=== PATIENT | male | born 1965 | race Caucasian/White ===

== ENCOUNTER → 2021-01-17 08:35 | Outpatient (CLI) | payer OTHER, SELFPAY ==
--- NOTE | ~2021-01-17 | XR_ITS ---
EXAMINATION: XR wrist RT min 3V DATE: 01/17/2021 08:57 INDICATION: Injury to the right hand TECHNIQUE: Posteroanterior, ulnar deviation, oblique, and lateral views of the right wrist were obtai tenisha. COMPARISON: 01/30/2019 FINDINGS: Old healed right scaphoid waist fracture with pin fixation and residual humpback deformity. Nondispla ludwin chronic nonunited ulnar styloid avulsion fracture. Alignment remains essentially anatomic. No acu te fractures identified. Slight progression in still moderate polyarticular osteoarthritis at the dis citlalli radioulnar, wrist, midcarpal, triscaphe and first carpal metacarpal joints. IMPRESSION: 1. Pin fixation of an old healed scaphoid waist fracture with residual humpback deformity. 2. Nondisplaced chronic nonunited ulnar styloid avulsion fracture. 3. Moderate polyarticular osteoarthritis at the right wrist and carpus. Reviewed, dictated and finalized at location A.
== END ==
PROVIDERS: Visit Provider Nurse Practitioner Family
DX: S52.611K Displaced fracture of right ulna styloid process, subsequent encounter for closed fracture with nonunion (principal)
CPT/HCPCS: 73110

== ENCOUNTER → 2022-04-30 11:42 | Outpatient (CLI) | payer BC, SELFPAY ==
--- NOTE | ~2022-04-30 | XR_ITS ---
XR shoulder LT min 2V DATE: 04/30/2022 12:00 INDICATION: Fall one month ago. Pain at top of shoulder, radiating down arm TECHNIQUE: 4 views COMPARISON: None FINDINGS: There is prominent degenerative change and inferior spurring at the acromioclavicular joint . There is mild osteoarthritis at the left glenohumeral joint. No fracture or dislocation, periosteal reaction or bone destruction. Patchy sclerotic densities of the proximal left humeral shaft may be due to benign chondroid tumor or infarct. IMPRESSION: Prominent degenerative change at left acromioclavicular joint Reviewed, dictated and finalized at location A.
--- NOTE | ~2022-04-30 | XR_ITS ---
XR clavicle LT DATE: 04/30/2022 12:00 INDICATION: Fall one month ago. Pain at top of shoulder radiating down arm TECHNIQUE: AP and angled AP views COMPARISON: 04/30/2022 left shoulder FINDINGS: There is prominent joint space narrowing and spurring at the acromioclavicular joint consis tent with prominent degenerative change. No fracture or dislocation, periosteal reaction or bone destruction of the left clavicle. IMPRESSION: Prominent degenerative change at the left acromioclavicular joint Reviewed, dictated and finalized at location A.
== END ==
PROVIDERS: PCP Family Medicine; Visit Provider Nurse Practitioner Family
DX: M89.8X1 Other specified disorders of bone, shoulder (principal); M19.012 Primary osteoarthritis, left shoulder
CPT/HCPCS: 73000; 73030

== ENCOUNTER → 2022-09-25 10:36 | Outpatient (CLI) | payer OTHER, SELFPAY ==
--- NOTE | ~2022-09-25 | XR_ITS ---
EXAMINATION:XR cervical spine min 6V DATE: 09/25/2022 10:58 INDICATION: Neck pain TECHNIQUE: AP, lateral in neutral, flexion, and extension, lateral swimmers and odontoid views of the cervical spine are provided. COMPARISON: 03/15/2018 FINDINGS: Again noted is kyphosis of the upper cervical spine. Alignment is normal. No hypermobility is present with flexion or extension. The odontoid process is intact. No fracture is identified. Vert ebral body heights and disk spaces are normal. Prevertebral soft tissues are normal. There is multile shanice mild to moderate facet joint osteoarthritis. IMPRESSION: 1. Mild cervical spondylosis without acute findings or significant interval change. Reviewed, dictated and finalized at location B. RATORY TESTER IMPRESSION: 1. Mild cervical spondylosis without acute findings or significant interval home nge.
== END ==
PROVIDERS: PCP Family Medicine; Visit Provider Nurse Practitioner Family
DX: M47.22 Other spondylosis with radiculopathy, cervical region (principal); G89.29 Other chronic pain
CPT/HCPCS: 72052

== ENCOUNTER → 2022-11-25 11:47 | Outpatient (CLI) | payer OTHER, SELFPAY ==
--- NOTE | ~2022-11-25 | XR_ITS ---
EXAM: XR shoulder RT min 2V DATE: 11/25/2022 11:59 HISTORY: M25.511 - Pain in right shoulder when lifting arm over head . COMPARISON: X-ray chest 07/01/2017, 06/27/2013. FINDINGS: Normal mineralization. No fracture or dislocation. No lytic or blastic lesion. Moderate AC joint hypertrophy. Mild glenohumeral joint narrowing and subchondral sclerosis. Distal right clavicu lar deformity, likely due to old healed fracture. Old osseous Bankart lesion. No erosion or periostea l change. Soft tissues within normal limits. IMPRESSION: No acute osseous finding in the right shoulder. Polyarticular osteoarthritis. Remote post traumatic findings detailed above. Reviewed, dictated and finalized at location K. IMPRESSION: No acute osseous finding in the right shoulder. Polyarticular osteo arthritis. Remote posttraumatic findings detailed above.
== END ==
PROVIDERS: PCP Orthopaedic Surgery; Visit Provider Orthopaedic Surgery
DX: M25.511 Pain in right shoulder (principal)
CPT/HCPCS: 73030

== ENCOUNTER 2023-01-25 00:23 | Day surgery (SDC) | payer OTHER, SELFPAY ==
[2023-01-20 09:53] VITALS: BMI 26.4
--- NOTE | 2023-01-20 09:55 | PC.NURSE ---
Report to the Outpatient Waiting Room, entrance under the green pavilion located off [facility], at 1000 on 01-25-23. Planned Procedure Time: 1200. Time changes happen often and if your time is changed the preop area will call you the afternoon before. - You and your visitor will be asked to self-screen and do not enter if you have any COVID symptoms. - A mask is optional within the hospital at this time. Patients may have clear liquids (water, carbonated beverages, clear teas, apple juice) until 3 hours prior to surgery with a maximum of 20 ounces. 0900 - No food from midnight until time of surgery - Infants may have breast milk until 4 hours before surgery, formula 6 hours prior to surgery. - Children will be allowed to drink immediately following surgery. If applicable, please bring a bottle or sippy cup to assist with drinking. Juice, water, soda, and popsicles are readily available. For infants on formula, please bring formula the day of surgery. Pacifiers are allowed. Take the following medications with a SIP of water the morning of surgery: None DO NOT STOP ANY OF YOUR OTHER PRESCRIPTION MEDICATIONS PRIOR TO SURGERY ?EXCEPT THE FOLLOWING Medications to discontinue per physician: Aleve Date to take last dose: 01-19-23 Please no make-up, nail indonesian, hairspray, perfume, deodorant, or body powder the day of surgery. No jewelry (including any body piercings) or valuables the day of surgery, leave them at home. Please take a shower or bath the night before, or the morning of, surgery with an antibacterial soap. Wear comfortable, loose fitting clothing. Children are encouraged to wear pajamas. - Jewelry must be removed prior to entering the operating room. Rings and piercings that are not removed may be cut off. - The hospital will not accept responsibility for valuables. - Please leave all valuables, including medications, at home the day of surgery. If you are going home after surgery, a licensed chain saw driver must drive you home. - NO public transportation without another adult if you receive anesthesia. - We recommend that an adult stay with you for 24 hours following discharge. - We also recommend that you do not drive, make important decision, drink alcoholic beverages, or take any drugs that were not prescribed by your health care provider for at least 24 hours after your discharge time. For Pediatric surgeries, we recommend two adults accompany the child home. Follow any additional instructions given to you from your surgeon. If you or anyone in your household have experienced Covid symptoms in the past week, please notify your surgeon or the nurse liaison at the phone number below for possible testing. Telephone instructions given to Ed Hsieh and asked if any additional questions and then verbalized understanding. Patient advised to call surgeon office or pre surgery nurse liaison [phone] if any additional questions.
[2023-01-25] VITALS (8 sets, daily range): BP systolic 100–113; BP diastolic 62–74; PULSE 57–65; RESP 12–20; TEMP 36.4; O2SAT 93–100; BMI 25.6
[2023-01-25] MEDS: KETOROLAC 15 MG/ML VIAL (*BKC) IV PUSH (10:38)
[2023-01-25] MEDS: ACETAMINOPHEN 500 MG TABLET 1000 MG PO (10:38)
[2023-01-25] MEDS: LACTATED RINGERS 1,000 ML 30 ML IV CONT ×2 (10:43→15:29)
--- NOTE | 2023-01-25 11:52 | WPDANESEPPF ---
Anes - Initial Pre Proc Eval Procedure: Operation Date: 01/25/23 12:00 Proposed Procedures p Right Shoulder Arthroscopy, Rotator Cuff Repair with Subacromial Decompression - Ferny Hylton MD Date/Time: 01/25/23 11:52 Surgeon: Ferny Hylton MD Pre Op Diagnosis: right complete rotator cuff tear Patient Data Age: 57 Gender: M Height: 1.85 m Weight: 88.2 kg Last Vital Signs Temp 36.4 C 01/25/23 10:01 Pulse 62 01/25/23 10:01 Resp 16 01/25/23 10:01 BP 104/62 01/25/23 10:01 Pulse Ox 100 01/25/23 10:01 O2 Del Method Room Air 01/25/23 10:01 Allergies Allergy/AdvReac Type Severity Reaction Status Date / Time No Known Allergies Allergy Unknown Verified 01/25/23 10:24 Home Medications Medication Instructions Recorded Confirmed Type cyclobenzaprine 10 mg tablet 10 mg PO TID PRN muscle spasm #30 12/15/22 01/25/23 Rx tabs tadalafil 5 mg tablet (Cialis) 5 mg PO DAILY #30 tabs 12/31/22 01/25/23 Rx diphenhydramine 25 1 tablet PO HS PRN pain 01/20/23 01/25/23 History mg-acetaminophen 500 mg tablet (Tylenol PM Extra Strength) montelukast 10 mg tablet 10 mg PO PRN PRN Allergy Symptoms 01/20/23 01/25/23 History (Singulair) naproxen sodium 220 mg tablet 440 mg PO Q8H PRN Pain 01/20/23 01/25/23 History (Aleve) Patient hx anesthesia problems: none Family hx anesthesia problems: none Results Review: All pre-operative results and documents have been reviewed as part of the pre-operative evaluation. PENDING SALE TO [facility] Past Medical History Medical History BMI 25.0-25.9,adult BMI 26.0-26.9,adult BMI 27.0-27.9,adult Surgical History Surgical History H/O colonoscopy History of hernia repair History of knee surgery (~03/18/15) Manipulation of Lt TKA History of total left knee replacement (~10/09/14) Family History Family History Father Family history of diabetes mellitus in first degree relative Family history of malignant neoplasm of urinary bladder Sibling No problems noted. Mother Social History Social History Smoking packs per day: 1 Smoking cigarettes per day: 20.0 Years smoked: 15 Smoking pack-years: 15.00 Smoking status: Former smoker Tobacco type: cigarettes Second hand tobacco smoke exposure: No Smoking end date: 08/23/93 Additional smoking assessment comments: Quit smoking at age 28 Alcohol intake: current Drinks per week: 1 Alcohol use details: occassionally Substance use: never Substance use type: does not use Lack of Transportation: No Lack of Food: Never True Current Housing: I Have Housing Concerned About Future Housing: No Difficulty Paying Gas/Electric Bills: No Difficulty Paying for Meds: No Currently Unemployed: No Education: High School Diploma/GED Difficulty w/ Childcare or Family Care: No Living arrangements: with family Occupation/Education: occupation 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 Informed Consent: The patient's anesthetic plan and its attendant risks and benefits were discussed with the patient/family/POA. Questions were solicited and answers p
--- NOTE | 2023-01-25 12:02 | WPDHPUPDATE1 ---
History and Physical Update Update Date/Time: 01/25/23 12:02 History and Physical has been reviewed, including an updated exam of the patient. There are NO changes in the patient's condition. Risks, benefits, and alternatives have been discussed and questions answered. Patient agrees to proceed with procedure.
--- NOTE | 2023-01-25 12:24 | WPDANESPNB ---
Anes - Peripheral Nerve Block Date/Time: 01/25/23 12:24 I have discussed with the patient/family/POA the placement of a peripheral nerve block for post-operative pain management, including associated risks, benefits, complications, and side effects. Alternative methods of post-operative analgesia were detailed. Questions were solicited and answers provided to the satisfaction of the patient/family/POA. Time-Out: A pre-procedural Time-Out was completed immediately before starting the procedure and confirmed: Patient Identification, Site, Procedure, Patient Position and the Availability of Requisite Equipment. Clinical Indications: Acute post-operative pain management requested by the operative surgeon. Nerve Block Insertion Note Anes-nerve block: interscalene right Patient position: supine Skin prep: chlorhexidine Needle: 22 gauge, stimulating, insulated echogenic needle. Needle length: 50 mm Technique: ultrasound Injectate: bupivacaine 0.5% with epi 5 mcg/ml (30cc no epi) and dexamethasone (mg) (8) Observations: tolerated well Complications: none Procedure start time:: 1220 Procedure end time:: 122
[2023-01-25] MEDS: ceFAZolin 2 GM/D5W 50 ML 2 GM/50 ML BAG IVPB (12:40)
[2023-01-25] MEDS: EPINEPHrine HCL INJ 1 MG/ML AMPUL IRRIGATION ×2 (13:30)
--- NOTE | 2023-01-25 15:36 | SUR.PHASEI ---
MD Hylton office contacted for discharge order and pt. instructions.
--- NOTE | 2023-01-25 15:42 | W.PM.PROC2 ---
Procedure Note - Detailed Date of Procedure 01/25/23 Pre-op Diagnosis right complete rotator cuff tear Post-op Diagnosis Same Procedure Performed Right shoulder 1. Arthroscopic rotator cuff repair 2. Arthroscopic subacromial decompression Surgeon Ferny Hylton MD Anesthesia General and Regional ( interscalene block) Findings Large crescent tear. Very mild retraction. Repair with 3 bone tunnels and 9 total sutures. Description of Procedure Preoperative antibiotics were given. An interscalene block was administered in the preoperative area. The patient was bought brought to the operating room. A general anesthetic was administered. The patient was carefully positioned in the beach chair position. The head and neck were carefully positioned. The non operative extremity was also carefully positioned. The shoulder was prepped and draped in the usual sterile fashion. Examination was performed. Standard posterior and anterior arthroscopic portals were established. Inflow achieved with the arthroscopic pump using saline and epinephrine. The glenohumeral joint was carefully inspected. There were mild degenerative changes the posterior superior labrum and inferior labrum. Overall cartilage quality was good. Minimal splitting of the upper subscapularis without instability. The biceps appeared normal and was stable at the superior labrum. Attention was turned to the subacromial space. A complete bursectomy was performed. The rotator cuff and footprint were lightly debrided. A modest acromioplasty was performed. The tear configuration was carefully assessed. At this point, 3 tunnels were created at the rotator cuff. The ArthroTunneler technique was utilized. Three sutures were passed through each tunnel. All sutures were then passed through the cuff tissue. The sutures were tied arthroscopically. The arthroscopic instruments were removed. The wounds were closed with 3-0 Monocryl subcuticular suture and steri strips. There were no complications. A sling was applied and the patient brought to the recovery room. Estimated Blood Loss 10 Pathology None sent Complications No immediate complications Condition Stable Disposition PACU [facility] Billing Surgery - Charge Forward: Surgery Billing
== END 2023-01-25 16:50 | disposition home or self-care (01) ==
PROVIDERS: PCP Family Medicine; Visit Provider Orthopaedic Surgery
PROC: (CPT 29805; principal; 2023-01-25 12:00)
DX: M75.121 Complete rotator cuff tear or rupture of right shoulder, not specified as traumatic (principal); M19.011 Primary osteoarthritis, right shoulder; Z87.891 Personal history of nicotine dependence
CPT/HCPCS: 29827; 29826; 64415; A4565; A9270; J0171; J0690; J1100; J1170; J1885; J2250; J2370; J2405; J2704; J2710; J3010; J7120

== ENCOUNTER 2023-08-09 08:16 | Emergency (ER) | payer OTHER, SELFPAY ==
[2023-08-09 08:28] VITALS: BP 113/67; PULSE 59; RESP 20; TEMP 36.9; O2SAT 98
--- NOTE | 2023-08-09 08:32 | ED.GENADULT ---
HPI - General Adult General Chief complaint: Upper Respiratory Infection Stated complaint: Congestion Source: patient, RN notes reviewed and old records reviewed Mode of arrival: ambulatory Limitations: no limitations History of Present Illness HPI narrative: 58-year-old male patient presents to [facility] with complaints of sinus congestion, sinus pain, ringing in ears, and slight cough this started in June. Patient states to telehealth visit and got a Z-Ras and albuterol inhaler patient states symptoms improved slightly then returned. Patient taking [id number] medications with little relief. MD complaint: Sinus congestion Onset (ago): week(s) (2-3) Related Data Allergies Allergy/AdvReac Type Severity Reaction Status Date / Time No Known Allergies Allergy Unknown Verified 08/09/23 08:39 Review of Systems Constitutional: Constitutional: Reports no additional constitutional complaints, Denies body ache(s), Denies chills, Denies fatigue, Denies fever(s) and Denies headache(s) Eyes: Eyes: Reports no additional eye complaints and Denies blurry vision ENT: Reports as per HPI, Denies vertigo, Denies dizziness, Denies ear discharge, Reports otalgia, Denies facial pain, Denies headache(s), Reports nasal congestion, Reports nasal discharge, Reports sinus pain, Reports sinus pressure and Denies sore throat Cardiovascular: Cardiovascular: Reports no additional cardiovascular complaints, Denies chest pain, Denies chest pain at rest, Denies rapid heart rate and Denies dyspnea Respiratory: Respiratory: Reports no additional respiratory complaints, Denies chest congestion, Reports cough, Denies pain on inspiration, Denies pain with cough and Denies dyspnea Gastrointestinal: Gastrointestinal: Denies abdominal pain, Denies diarrhea, Denies nausea and Denies vomiting Integumentary/Breasts: Skin/Breast: Denies rash Neurologic: Reports system reviewed and no additional complaints, except as documented, Denies vertigo, Denies dizziness and Denies headache(s) Endocrine: Endocrine: Denies fatigue PMFSH Past Medical History Medical History BMI 25.0-25.9,adult BMI 26.0-26.9,adult BMI 27.0-27.9,adult Surgical History Surgical History H/O colonoscopy History of hernia repair History of knee surgery (~11/07/14) Manipulation of Lt TKA History of repair of right rotator cuff (~01/25/23) w/Subacromial Decompression History of total left knee replacement (~10/09/14) Family History Family History Father Family history of diabetes mellitus in first degree relative Family history of malignant neoplasm of urinary bladder Sibling No problems noted. Mother Social History Social History Smoking packs per day: 1 Smoking cigarettes per day: 20.0 Years smoked: 15 Smoking pack-years: 15.00 Smoking status: Former smoker Tobacco type: cigarettes Second hand tobacco smoke exposure: No Smoking end date: 08/23/93 Additional smoking assessment comments: Quit smoking at age 28 Alcohol intake: current Drinks per week: 1 Alcohol use details: occassionally Substance use: never Substance use type: does not use Lack of Transportation: No Lack of Food: Never True Current Housing: I Have Housing Concerned About Future Housing: No Difficulty Paying Gas/Electric Bills: No Difficulty Paying for Meds: No Currently Unemployed: No Education: High School Diploma/GED Difficulty w/ Childcare or Family Care: No Living arrangements: with family Occupation/Education: occupation 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
== END 2023-08-09 09:00 | disposition home or self-care (01) ==
PROVIDERS: Emergency Provider Registered Nurse; PCP Nurse Practitioner Family
DX: J01.90 Acute sinusitis, unspecified (principal); B96.89 Other specified bacterial agents as the cause of diseases classified elsewhere; Z87.891 Personal history of nicotine dependence
CPT/HCPCS: 99213; G0463

== ENCOUNTER 2023-08-13 08:28 | Emergency (ER) | payer OTHER, SELFPAY ==
--- NOTE | 2023-08-13 08:31 | ED.GENADULT ---
HPI - General Adult General Chief complaint: Abdominal Pain Stated complaint: Abdominal Pain Source: patient, RN notes reviewed and old records reviewed Mode of arrival: ambulatory Limitations: no limitations History of Present Illness HPI narrative: 4-year-old male presents to [facility] with complaint of lower left abdominal/ groin pain with bulge that patient noted this a.m. after bending over. Patient denies nausea or vomiting. Patient states had a right-sided hernia repair a few years ago. MD complaint: Abdominal pain Onset (ago): hour(s) (2-3) Related Data Home Medications Medication Instructions Recorded Confirmed sildenafil 100 mg tablet 100 mg PO DAILY PRN Sexual Activity 08/13/23 08/13/23 Allergies Allergy/AdvReac Type Severity Reaction Status Date / Time No Known Allergies Allergy Unknown Verified 08/13/23 08:36 Review of Systems Constitutional: Constitutional: Reports no additional constitutional complaints, Denies body ache(s), Denies chills, Denies fatigue, Denies fever(s) and Denies headache(s) Eyes: Eyes: Reports no additional eye complaints and Denies blurry vision ENT: Reports system reviewed and no additional complaints, except as documented, Denies vertigo, Denies dizziness, Denies ear discharge, Denies otalgia, Denies facial pain, Denies headache(s), Denies nasal congestion, Denies nasal discharge, Denies sinus pain, Denies sinus pressure and Denies sore throat Cardiovascular: Cardiovascular: Reports no additional cardiovascular complaints, Denies chest pain, Denies chest pain at rest, Denies rapid heart rate and Denies dyspnea Respiratory: Respiratory: Reports no additional respiratory complaints, Denies chest congestion, Denies cough, Denies pain on inspiration, Denies pain with cough and Denies dyspnea Gastrointestinal: Gastrointestinal: Reports as per HPI, Reports abdominal pain, Denies diarrhea, Denies nausea and Denies vomiting Integumentary/Breasts: Skin/Breast: Denies rash Neurologic: Reports system reviewed and no additional complaints, except as documented, Denies vertigo, Denies dizziness and Denies headache(s) Endocrine: Endocrine: Denies fatigue [facility] Past Medical History Medical History BMI 25.0-25.9,adult BMI 26.0-26.9,adult BMI 27.0-27.9,adult Surgical History Surgical History H/O colonoscopy History of hernia repair History of knee surgery (~11/07/14) Manipulation of Lt TKA History of repair of right rotator cuff (~01/25/23) w/Subacromial Decompression History of total left knee replacement (~10/09/14) Family History Family History Father Family history of diabetes mellitus in first degree relative Family history of malignant neoplasm of urinary bladder Sibling No problems noted. Mother Social History Social History Smoking packs per day: 1 Smoking cigarettes per day: 20.0 Years smoked: 15 Smoking pack-years: 15.00 Smoking status: Former smoker Tobacco type: cigarettes Second hand tobacco smoke exposure: No Smoking end date: 08/23/93 Additional smoking assessment comments: Quit smoking at age 28 Alcohol intake: current Drinks per week: 1 Alcohol use details: occassionally Substance use: never Substance use type: does not use Lack of Transportation: No Lack of Food: Never True Current Housing: I Have Housing Concerned About Future Housing: No Difficulty Paying Gas/Electric Bills: No Difficulty Paying for Meds: No Currently Unemployed: No Education: High School Diploma/GED Difficulty w/ Childcare or Family Care: No Living arrangements: with family Occupation/Education: occupation 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
[2023-08-13 08:33] VITALS: BP 124/74; PULSE 72; RESP 16; TEMP 36.6; O2SAT 98
[2023-08-13 08:38] VITALS: BP 124/74; PULSE 72; RESP 16; TEMP 36.6; O2SAT 98
== END 2023-08-13 08:54 | disposition home or self-care (01) ==
PROVIDERS: Emergency Provider Registered Nurse; PCP Family Medicine
DX: K40.90 Unilateral inguinal hernia, without obstruction or gangrene, not specified as recurrent (principal); Z87.891 Personal history of nicotine dependence
CPT/HCPCS: 99211; G0463

== ENCOUNTER 2023-10-29 00:12 | Day surgery (SDC) | payer OTHER, SELFPAY ==
[2023-10-22 14:26] VITALS: BMI 27.1
--- NOTE | 2023-10-22 14:46 | PC.NURSE ---
Report to the Outpatient Waiting Room, entrance under the green pavilion located off [facility], at time _0600 on date _10/29/23 . Planned Procedure Time: _0730 . Time changes happen often and if your time is changed the preop area will call you the afternoon before. - You and your visitor will be asked to self-screen and do not enter if you have any COVID symptoms. - A mask is optional within the hospital at this time. Patients may have clear liquids (water, carbonated beverages, clear teas, apple juice) until 3 hours prior to surgery with a maximum of 20 ounces. - No food from midnight until time of surgery Take the following medications with a SIP of water the morning of surgery: __NONE DO NOT STOP ANY OF YOUR OTHER PRESCRIPTION MEDICATIONS PRIOR TO SURGERY ?EXCEPT THE FOLLOWING Medications to discontinue per physician NONE Date to take last dose___NONE Please no make-up, nail syriac, hairspray, perfume, deodorant, or body powder the day of surgery. No jewelry (including any body piercings) or valuables the day of surgery, leave them at home. Please take a shower or bath the night before, or the morning of, surgery with an antibacterial soap. Wear comfortable, loose fitting clothing. Children are encouraged to wear pajamas. - Jewelry must be removed prior to entering the operating room. Rings and piercings that are not removed may be cut off. - The hospital will not accept responsibility for valuables. - Please leave all valuables, including medications, at home the day of surgery. If you are going home after surgery, a licensed school bus driver/teacher assistant must drive you home. - NO public transportation without another adult if you receive anesthesia. - We recommend that an adult stay with you for 24 hours following discharge. - We also recommend that you do not drive, make important decision, drink alcoholic beverages, or take any drugs that were not prescribed by your health care provider for at least 24 hours after your discharge time. Follow any additional instructions given to you from your surgeon. If you or anyone in your household have experienced Covid symptoms in the past week, please notify your surgeon or the nurse liaison at the phone number below for possible testing. Telephone instructions given to _DAVID__and asked if any additional questions and then verbalized understanding. Patient advised to call surgeon office or pre surgery nurse liaison [phone] if any additional questions.
[2023-10-29] VITALS (7 sets, daily range): BP systolic 102–126; BP diastolic 53–72; PULSE 57–70; RESP 11–18; TEMP 36.2–36.3; O2SAT 99–100
--- NOTE | 2023-10-29 02:53 | PM.IMHP ---
H&P: HPI History of Present Illness Date/Time: 10/29/23 02:53 Chief Complaint: Left inguinal hernia Narrative: Pt presents with left inguinal bulge that is sometimes tender, no prior hx of LIH repair. On exam during his office visit, a small reducible LIH was found. In addition, a right epididymal mass was found and he was evaluated by Dr. Hernandez from Urology and was diagnosed with an epididymal cyst that needs no current surgical management. He presents today for a robotic assisted laparoscopic left inguinal hernia repair with mesh. Had prior hx of RIH repair but has no evidence of a recurrent RIH. Review of Systems Review of Systems: The remainder of the review of systems to include constitutional, HEENT, cardiovascular, respiratory, GI, , integumentary, musculoskeletal, endocrine, immunologic, hematologic, psychiatric, and neurologic are all negative except for which is mentioned above in the HPI. [facility] Past Medical History Medical History Allergic rhinitis BMI 25.0-25.9,adult BMI 26.0-26.9,adult BMI 27.0-27.9,adult Impacted cerumen Left inguinal hernia Pharyngitis Surgical History Surgical History H/O colonoscopy History of hernia repair History of knee surgery (~11/07/14) Manipulation of Lt TKA History of repair of right rotator cuff (~01/25/23) w/Subacromial Decompression History of total left knee replacement (~10/09/14) Family History Family History Father Family history of diabetes mellitus in first degree relative Family history of malignant neoplasm of urinary bladder Sibling No problems noted. Mother Social History Social History Smoking packs per day: 1 Smoking cigarettes per day: 20.0 Years smoked: 15 Smoking pack-years: 15.00 Smoking status: Former smoker Tobacco type: cigarettes Second hand tobacco smoke exposure: No Smoking end date: 08/23/93 Additional smoking assessment comments: Quit smoking at age 28 Alcohol intake: current Drinks per week: 1 Alcohol use details: occassionally Substance use: never Substance use type: does not use Last use: 08/23/93 Lack of Transportation: No Lack of Food: Never True Current Housing: I Have Housing Concerned About Future Housing: No Difficulty Paying Gas/Electric Bills: No Difficulty Paying for Meds: No Currently Unemployed: No Education: High School Diploma/GED Difficulty w/ Childcare or Family Care: No Living arrangements: with family Occupation/Education: occupation 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 Gender identity (if verbalized by the patient): Male Spiritual care concerns: No Meds Home Medications and Allergies Home Medications Medication Instructions Recorded Confirmed Type tadalafil 5 mg tablet (Cialis) 5 mg PO DAILY #30 tabs 09/30/23 10/22/23 Rx Allergies Allergy/AdvReac Type Severity Reaction Status Date / Time No Known Allergies Allergy Unknown Verified 08/31/23 14:00 Exam Const: General: comfortable and no acute distress Eyes: General: appearance normal, both eyes and all related structures Sclera: sclerae normal Pupils: Equal, round and reactive pupils present Neck: Neck: supple and no JVD Resp: Effort & Inspection: normal respiratory effort Auscultation: clear to auscultation bilaterally Cardio: Rate: regular rate Rhythm: regular rhythm GI: GI Palp: Yes Soft to palpation, No Firmness to palpation present (GI), No Tenderness to palpation present (GI), No Guarding due to palpation present (GI) and No Hernia present : Other: Reducible LIH, no RIH. Small min tender right epididymal cyst. No groin rashes. Skin: General skin exam: normal color and no rash
[2023-10-29] MEDS: ACETAMINOPHEN 500 MG TABLET 1000 MG PO (06:12)
[2023-10-29] MEDS: LACTATED RINGERS 1,000 ML 30 ML IV CONT ×2 (06:38→09:21)
[2023-10-29] MEDS: KETOROLAC 15 MG/ML VIAL (*BKC) IV PUSH ×2 (06:39→08:58)
--- NOTE | 2023-10-29 07:03 | WPDHPUPDATE1 ---
History and Physical Update Update Date/Time: 10/29/23 07:03 History and Physical has been reviewed, including an updated exam of the patient. There are NO changes in the patient's condition. Risks, benefits, and alternatives have been discussed and questions answered. Patient agrees to proceed with procedure.
--- NOTE | 2023-10-29 07:11 | WPDANESEPPF ---
Anes - Initial Pre Proc Eval Procedure: Operation Date: 10/29/23 07:30 Proposed Procedures p Robotic Assisted Left Laparoscopic Left Inguinal Hernia Repair with Mesh - Renny Palomino MD Date/Time: 10/29/23 07:11 Surgeon: Renny Palomino MD Pre Op Diagnosis: reducible Left Inguinal hernia Patient Data Age: 58 Gender: M Height: 1.83 m Weight: 88.7 kg Last Vital Signs Temp 97.3 F L 10/29/23 07:02 Pulse 57 L 10/29/23 07:02 Resp 16 10/29/23 07:02 BP 102/64 10/29/23 07:02 Pulse Ox 100 10/29/23 07:02 O2 Del Method Room Air 10/29/23 07:02 Allergies Allergy/AdvReac Type Severity Reaction Status Date / Time No Known Allergies Allergy Unknown Verified 10/29/23 06:10 Home Medications Medication Instructions Recorded Confirmed Type tadalafil 5 mg tablet (Cialis) 5 mg PO DAILY #30 tabs 09/30/23 10/29/23 Rx Patient hx anesthesia problems: none Family hx anesthesia problems: none Results Review: All pre-operative results and documents have been reviewed as part of the pre-operative evaluation. [facility] Past Medical History Medical History Allergic rhinitis BMI 25.0-25.9,adult BMI 26.0-26.9,adult BMI 27.0-27.9,adult Impacted cerumen Left inguinal hernia Pharyngitis Surgical History Surgical History H/O colonoscopy History of hernia repair History of knee surgery (~11/07/14) Manipulation of Lt TKA History of repair of right rotator cuff (~01/25/23) w/Subacromial Decompression History of total left knee replacement (~10/09/14) Family History Family History Father Family history of diabetes mellitus in first degree relative Family history of malignant neoplasm of urinary bladder Sibling No problems noted. Mother Social History Social History Smoking packs per day: 1 Smoking cigarettes per day: 20.0 Years smoked: 15 Smoking pack-years: 15.00 Smoking status: Former smoker Tobacco type: cigarettes Second hand tobacco smoke exposure: No Smoking end date: 08/23/93 Additional smoking assessment comments: Quit smoking at age 28 Alcohol intake: current Drinks per week: 1 Alcohol use details: occassionally Substance use: never Substance use type: does not use Last use: 08/23/93 Lack of Transportation: No Lack of Food: Never True Current Housing: I Have Housing Concerned About Future Housing: No Difficulty Paying Gas/Electric Bills: No Difficulty Paying for Meds: No Currently Unemployed: No Education: High School Diploma/GED Difficulty w/ Childcare or Family Care: No Living arrangements: with family Occupation/Education: occupation 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 Informed Consent: The patient's anesthetic plan and its attendant risks and benefits were discussed with the patient/family/POA. Questions were solicited and answers provided to the satisfaction of the patient/family/POA.
[2023-10-29] MEDS: ceFAZolin 2 GM/D5W 50 ML 2 GM/50 ML BAG IVPB (07:22)
[2023-10-29] MEDS: LIDO 1%/EPINEPHRINE 1:100,000 50 ML VIAL 25 ML INFILTRATE (07:50)
[2023-10-29] MEDS: BUPivacaine HCL 0.5% 10 ML AMP 25 ML INFILTRATE (07:51)
--- NOTE | 2023-10-29 09:15 | W.PM.PROC2 ---
Procedure Note - Detailed Date of Procedure 10/29/23 Pre-op Diagnosis Reducible Left Inguinal hernia Post-op Diagnosis Same Procedure Performed Robotic assisted laparoscopic left inguinal hernia repair with Bard 3D mid weight mesh Surgeon Renny Palomino MD [employer] ETHAN Burger Anesthesia General Indications Patient is a 58-year-old gentleman who presented with a new left groin bulge which was reducible. It was slowly enlarging and causing have some mild discomfort. Presents now for a robotic assisted laparoscopic reducible left inguinal hernia repair with mesh. Findings Patient had a indirect left inguinal hernia. It was repaired robotically with laparoscopic approach utilizing a [id number] large piece of Bard 3D mid weight mesh. No evidence of recurrent right inguinal hernia. Description of Procedure After informed consent was obtained patient brought to the operating room was placed supine position and then general endotracheal anesthesia was administered. The abdomen and bilateral groins were then prepped and draped usual sterile fashion. A time-out was then performed correctly identifying the patient as well as procedure to be performed. She was given perioperative IV antibiotics. Site marking was verified. I 1st started by placing a 10mm Optiview port in left upper quadrant with a direct optical insertion. Once inside the abdomen insufflated to adequate pneumoperitoneum of 15mmHg of CO2. Looking into the lower portions of the abdomen there was a indirect left inguinal hernia without evidence of any incarcerated contents. The right groin area showed no evidence recurrent inguinal hernia and the previously placed mesh was seen and good position. I then placed additional 8mm trocar ports across the mid abdomen under direct visualization. The Fromography Sheldon robot was then brought to the patient's bedside and docked and the arms were then attached the robotic ports. Robotic instruments were then advanced into the abdomen under direct visualization. I then scrubbed out the procedure sent down the robotic console to perform the dissection robotically. I then started a peritoneal flap starting anterior medial to the left anterior superior iliac spine extended across the lower abdomen dividing the left median umbilical ligament. Dissection carried down through this avascular preperitoneal plane medially down to the pubic tubercle and down in the space of Retzius for couple cm. I then worked my way laterally identified the epigastric vessels and then dissected out the indirect inguinal hernia sac after identifying the vas deferens and testicular vessels which were preserved without injury. The peritoneal flap and the hernia sac was then dissected proximally up onto the psoas muscle and proximal to where the vas deferens and testicular vessels . I made sure that it was far enough back that the mesh was stay in place without rolling up the edge of the mesh with closing the peritoneum. I checked the femoral space there is no evidence of any hernia. There was a small cord lipoma which was dissected free of the cord structures and resected and removed from the abdomen discarded. There was no evidence of indirect inguinal hernia defect. A [id number] large piece of Bard 3D mid weight mesh was then used for the repair oriented for the left side. This placed through the left upper quadrant bedside of persistent port site and then placed into the dissected out space to cover the whole myopectineal orifice. It was secured to the tissues pubic tubercle utilizing interrupted 2-0 Vicryl sutures. Laterally it was secured to the muscle anterior medial to the left anterior suprailiac spine. A 3rd suture was then used to approximate the mesh to the area the potential direct defect space. The mesh laid out very nicely and proceeded to reapproximate the edges the peritoneum. This is done with a running 2-0 absorbable V lock suture. There were no defects in the peritone
[2023-10-29] MEDS: oxyCODONE HCL (*CRX) 5 MG TAB IR PO (10:41)
== END 2023-10-29 11:08 | disposition home or self-care (01) ==
PROVIDERS: PCP Family Medicine; Visit Provider Surgery
PROC: 8E0Y4CZ Robotic Assisted Procedure of Lower Extremity, Percutaneous Endoscopic Approach (ICD-10-PCS; CPT 49650; principal; 2023-10-29 07:30)
DX: K40.90 Unilateral inguinal hernia, without obstruction or gangrene, not specified as recurrent (principal); Z87.891 Personal history of nicotine dependence
CPT/HCPCS: 49650; S2900; 36415; 86850; 86900; 86901; A9270; C1781; J0690; J1100; J1885; J2250; J2405; J2704; J3010; J7030; J7120

== ENCOUNTER 2023-12-30 09:58 | Outpatient (CLI) | payer OTHER, SELFPAY ==
--- NOTE | ~2023-12-30 | US_ITS ---
EXAMINATION: US scrotum doppler DATE: 12/30/2023 10:59 INDICATION: Spermatocele. TECHNIQUE: Grayscale and Doppler ultrasound images of the testes were obtained. COMPARISON: None. FINDINGS: The right testis measures 5.9 x 1.8 x 3.3 cm. The left testis measures 5.3 x 1.9 x 3.0 cm. There is normal vascular flow to both testes. The right epididymis is normal with normal vascular joaquin w. The left epididymis is normal with normal vascular flow. There is no hydrocele. There are bilatera l varicoceles. IMPRESSION: 1. Bilateral varicoceles. Reviewed, dictated and finalized at location A. IMPRESSION: 1. Bilateral varicoceles.
== END 2023-12-30 09:59 | disposition home or self-care (01) ==
PROVIDERS: PCP Family Medicine; Visit Provider Nurse Practitioner
DX: I86.1 Scrotal varices (principal)
CPT/HCPCS: 76870; 93976

== ENCOUNTER 2025-01-11 01:05 | Day surgery (SDC) | payer OTHER, SELFPAY ==
[2025-01-04 13:09] VITALS: BMI 25.7
--- OUTSIDE RECORDS SUMMARY | 2025-01-11 01:07 | XMS_ITS | Clinical Summary ---
Author Organization [facility] Address [address] [address] Phone Care Team Providers Care Tube Mill Operator Name Role Phone Norman Krishna MD Primary Care Provider Adiakee Bennett Sirisha DO Unavailable [phone] Allergies No known active allergies Medications No known medications Family History Medical History Relation Name Comments Diabetes Father Cancer Mother blood Relation Name Status Comments Father Mother Alive Social History Tobacco Use Types Packs/Day Years Used Date Smoking Tobacco: Former Cigarettes 1 20 Comments:quit 20 years ago Alcohol Use Standard Drinks/Week Comments Yes 0 (1 standard drink = 0.6 oz pur e alcohol) 2-3 weekends Sex and Gender Information Value Date Recorded Sex Assigned at Not on file Legal Sex Male 10:01 PM CDT Gender Identity Not on file Sexual Orientation Not on file 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 Not on file Not on file Not on file Last Filed Vital Signs Vital Sign Reading Time Taken Comments Blood Pressure 111/80 05/06/2017 1:41 PM CDT Pulse 72 05/06/2017 11:13 AM CDT Temperature 36 C (96.8 F) 05/06/2017 1:41 PM CDT Respiratory Rate 16 05/06/2017 1:41 PM CDT Oxygen Saturation 99% 05/06/2017 1:41 PM CDT Inhaled Oxygen Concentration - - Weight 93 kg (205 lb) 05/06/2017 11:13 AM CDT Height 188 cm (6' 2 ) 05/06/2017 11:13 AM CDT Body Mass Index 26.32 05/06/2017 11:13 AM CDT Plan of Treatment Health Maintenance Due Date Last Done Comments Hepatitis C Virus (HCV) Screening 1965 TdaP Immunization 1965 Cologuard 2013 Immunochemical Fecal Occult Blood 2013 Pneumococcal Immunization (5 0+ years) (1 of 1 - PCV) 2013 Zoster Immunization (1 of 2) 2013 PSA Discussion 2018 Colonoscopy 05/06/2020 05/06/2017 Colorectal Cancer Screening 05/06/2020 Influenza Immunization (#1) 2024 SARS-COV-2 Immunization ( - season) 2024 Respiratory Syncytial Virus (RSV) Immunization (Adult) (1 - 1-dose 75+ series) 2038 05/06/2017 Hepatitis B Immunization Aged Out No longer eligible based on patient's age to complete this topic Meningococcal Immunization (ACWY) Aged Out No longer eligible based on patient's age to complete this topic Pneumococcal Immunization Combined Aged Out No longer eligible based on patient's age to complete this topic Rotavirus Immunization Aged Out No lo nger eligible based on patient's age to complete this topic Care Teams Tube Mill Operator Relationship Specialty Start Date End Date Norman Krishna [place] [address] [address] PCP - General Family Medicine 03/09/16 Bennett [place] [address] [address] Gastroenterology 03/09/16
[2025-01-11 11:28] VITALS: BP 101/68; PULSE 64; RESP 18; TEMP 36.6; O2SAT 99
[2025-01-11] MEDS: LACTATED RINGERS 1,000 ML 150 ML IV CONT (11:53)
--- NOTE | 2025-01-11 11:58 | P.PNAN_ITS ---
Anes - Initial Pre Proc Eval Procedure: Operation Date: 01/11/25 12:30 Proposed Procedures p Screening Colonoscopy - Alex Carr MD Date/Time: 01/11/25 11:58 Surgeon: Alex Carr MD Pre Op Diagnosis: Screening Patient Data Age: 59 Gender: M Height: 1.88 m Weight: 88.3 kg Last Vital Signs Temp 36.6 C 01/11/25 11:28 Pulse 64 01/11/25 11:28 Resp 18 01/11/25 11:28 BP 101/68 01/11/25 11:28 Pulse Ox 99 01/11/25 11:28 O2 Del Method Room Air 01/11/25 11:28 Allergies Allergy/AdvReac Type Severity Reaction Status Date / Time No Known Allergies Allergy Unknown Verified 01/04/25 13:06 Home Medications ?Medication ?Instructions ?Recorded ?Confirmed ?Type tadalafil 5 mg tablet (Cialis) 5 mg PO DAILY #30 tabs 10/16/24 01/04/25 Rx fexofenadine 180 mg tablet 180 mg PO DAILY #90 tabs 11/15/24 01/11/25 Rx (Celina Allergy) fluticasone propionate 50 1 spray intranasal DAILY #18.2 mL 11/15/24 01/11/25 Rx mcg/actuation nasal spray,suspension (Flonase Allergy Relief) montelukast 10 mg tablet 10 mg PO DAILY #90 tabs 11/15/24 01/11/25 Rx (Singulair) Patient hx anesthesia problems: none Family hx anesthesia problems: none Results Review: All pre-operative results and documents have been reviewed as part of the pre- operative evaluation. [facility] Past Medical History Medical History (Updated 01/10/25 @ 14:34 by Vega Mcdowell DO) Hepatitis B Allergic rhinitis Impacted cerumen Pharyngitis Left inguinal hernia BMI 27.0-27.9,adult BMI 26.0-26.9,adult BMI 25.0-25.9,adult Surgical History Surgical History History of left inguinal hernia repair Robotic assisted laparoscopic left inguinal hernia repair with Bard 3D mid weight mesh 10/29/23 History of repair of right rotator cuff (~01/25/23) w/Subacromial Decompression History of knee surgery (~11/07/14) Manipulation of Lt TKA History of total left knee replacement (~10/09/14) History of hernia repair H/O colonoscopy Family History Family History Father Family history of diabetes mellitus in first degree relative Family history of malignant neoplasm of urinary bladder Sibling No problems noted. Mother Social History Social History Smoking packs per day: 1 Smoking cigarettes per day: 20.0 Years smoked: 15 Smoking pack-years: 15.00 Smoking status: Former smoker Tobacco type: cigarettes Second hand tobacco smoke exposure: No Smoking end date: 08/23/93 Additional smoking assessment comments: Quit smoking at age 28 Alcohol intake: current Drinks per week: 1 Alcohol use details: occassionally Substance use: never Substance use type: does not use Last use: 08/23/93 Lack of Transportation: No Lack of Food: Never True Current Housing: I Have Housing Concerned About Future Housing: No Difficulty Paying Gas/Electric Bills: No Difficulty Paying for Meds: No Currently Unemployed: No Education: High School Diploma/GED Difficulty w/ Childcare or Family Care: No Living arrangements: with family Occupation/Education: occupation 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 Informed Consent: The patient's anesthetic plan and its attendant risks and benefits were discussed with the patient/family/POA. Questions were solicited and answers provided to the satisfaction of the patient/family/POA.
--- NOTE | 2025-01-11 12:49 | PM.HPGS ---
History of Present Illness History of Present Illness Consent: Risks, benefits, and alternatives have been discussed and questions answered. Patient agrees to proceed with procedure. Chief complaint: Screening Narrative: Ed Hsieh is a 59 year old male with colon polyp 6 years ago Review of Systems Review of Systems: All systems reviewed & are unremarkable except as noted in HPI and below PMFSH Past Medical History Medical History (Updated 01/11/25 @ 12:50 by Alex Carr MD) Colon polyp Hepatitis B Allergic rhinitis Impacted cerumen Pharyngitis Left inguinal hernia BMI 27.0-27.9,adult BMI 26.0-26.9,adult BMI 25.0-25.9,adult Surgical History Surgical History History of left inguinal hernia repair Robotic assisted laparoscopic left inguinal hernia repair with Bard 3D mid weight mesh 10/29/23 History of repair of right rotator cuff (~01/25/23) w/Subacromial Decompression History of knee surgery (~11/07/14) Manipulation of Lt TKA History of total left knee replacement (~10/09/14) History of hernia repair H/O colonoscopy Family History Family History Father Family history of diabetes mellitus in first degree relative Family history of malignant neoplasm of urinary bladder Sibling No problems noted. Mother Social History Social History Smoking packs per day: 1 Smoking cigarettes per day: 20.0 Years smoked: 15 Smoking pack-years: 15.00 Smoking status: Former smoker Tobacco type: cigarettes Second hand tobacco smoke exposure: No Smoking end date: 08/23/93 Additional smoking assessment comments: Quit smoking at age 28 Alcohol intake: current Drinks per week: 1 Alcohol use details: occassionally Substance use: never Substance use type: does not use Last use: 08/23/93 Lack of Transportation: No Lack of Food: Never True Current Housing: I Have Housing Concerned About Future Housing: No Difficulty Paying Gas/Electric Bills: No Difficulty Paying for Meds: No Currently Unemployed: No Education: High School Diploma/GED Difficulty w/ Childcare or Family Care: No Living arrangements: with family Occupation/Education: occupation 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 Gender identity (if verbalized by the patient): Male Spiritual care concerns: No Meds Home Medications and Allergies Home Medications ?Medication ?Instructions ?Recorded ?Confirmed ?Type tadalafil 5 mg tablet (Cialis) 5 mg PO DAILY #30 tabs 10/16/24 01/04/25 Rx fexofenadine 180 mg tablet 180 mg PO DAILY #90 tabs 11/15/24 01/11/25 Rx ([facility]) fluticasone propionate 50 1 spray intranasal DAILY #18.2 mL 11/15/24 01/11/25 Rx mcg/actuation nasal spray,suspension (Flonase Allergy Relief) montelukast 10 mg tablet 10 mg PO DAILY #90 tabs 11/15/24 01/11/25 Rx (Singulair) Allergies Allergy/AdvReac Type Severity Reaction Status Date / Time No Known Allergies Allergy Unknown Verified 01/04/25 13:06 Vital Signs Vital Signs - 24 hr 01/11/25 11:28 Temperature 97.9 F Pulse Rate 64 Respiratory Rate 18 Blood Pressure 101/68 Pulse Oximetry 99 Oxygen Delivery Room Air Exam Const: General: comfortable and no acute distress HENMT: Face/Nose/Sinus: Normal nares present Eyes: General: appearance normal, both eyes and all related structures Neck: Neck: no JVD Resp: Auscultation: clear to auscultation bilaterally Cardio: Rate: regular rate Rhythm: regular rhythm GI: Inspection: non-distended GI Palp: Yes Soft to palpation Skin: General skin exam: normal color Neuro: General: gait normal Speech: normal speech Extrem: General: normal to inspection Psych: Mental Status: mental status grossly normal Assessment and Plan Assessment and plan (1) Colon polyp: Code(s): K63.5 - Polyp of colon Status: Acute Assessment and Plan: colonoscopy
[2025-01-11 13:06] VITALS: BP 94/59; PULSE 58; RESP 18; O2SAT 96
[2025-01-11 13:16] VITALS: BP 92/59; PULSE 56; RESP 16; O2SAT 100
[2025-01-11 13:26] VITALS: BP 98/69; PULSE 52; RESP 14; O2SAT 100
== END 2025-01-11 13:40 | disposition home or self-care (01) ==
PROVIDERS: PCP Family Medicine; Referring Provider Physician Assistant Medical; Visit Provider Internal Medicine Gastroenterology
PROC: 0DJD8ZZ Inspection of Lower Intestinal Tract, Via Natural or Artificial Opening Endoscopic (ICD-10-PCS; CPT 45378; principal; 2025-01-11 12:30)
DX: Z12.11 Encounter for screening for malignant neoplasm of colon (principal); K64.8 Other hemorrhoids; Z98.890 Other specified postprocedural states; Z87.891 Personal history of nicotine dependence; Z86.0100 Personal history of colon polyps, unspecified; Z80.52 Family history of malignant neoplasm of bladder
CPT/HCPCS: 45378; J2003; J2704; J7120

== ENCOUNTER 2025-05-01 13:38 | Outpatient (CLI) | payer OTHER, SELFPAY ==
--- NOTE | ~2025-05-01 | XR_ITS ---
XR lumbar spine 2-3V Indication: M54.31 - Sciatica, right side Comparison: None Findings: Dextroconvex scoliosis. Grade 1 retrolisthesis L2 on L3. No fracture identified. Moderate loss of disc height L3-4, L4-5 and L5-S1 Soft tissues unremarkable Impression: No acute abnormality. Reviewed, dictated and finalized at location A. Impression: No acute abnormality.
--- OUTSIDE RECORDS SUMMARY | 2025-05-01 15:09 | XMS_ITS | Clinical Summary ---
Author Organization [facility] Address [address] [address] Phone Care Team Providers Care Compensator Name Role Phone Norman Krishna MD Primary Care Provider [phone] Adiakee Bennett Sirisha DO Unavailable [phone] Allergies No known active allergies Medications [...] 11:13 AM CDT Height 188 cm (6' 2) 05/06/2017 11:13 AM CDT Body Mass Index 26.32 05/06/2017 11:13 AM CDT Plan of Treatment Health Maintenance Due Date Last Done Comments Hepatitis C Virus (HCV) Screening 1965 TdaP Immunization 1965 Cologuard 2008 Immunochemical Fecal Occult Blood 2008 Pneumococcal Immunization (5 0+ years) (1 of 1 - PCV) 2013 Zoster Immunization (1 of 2) 2013 Colonoscopy 05/06/2020 05/06/2017 Colorectal Cancer Screening 05/06/2020 SARS-COV-2 Immunization (1 - 2023- season) 2024 Influenza Immunization (#1) 2025 Respiratory Syncytial Virus (RSV) Immunization (Adult) (1 - 1-dose 75+ series) 2038 Hepatitis B Immunization Aged Out No longer eligible based on patient's age to complete this topic Human Papillomavirus (HPV) Immunization Aged Out No longer eligible b ased on patient's age to complete this topic Meningococcal Immunization (ACWY) Aged Out No longer eligible based on patient's age to complete this topic Rotavirus Immunization Aged Out No lo nger eligible based on patient's age to complete this topic Care Teams Compensator Relationship Specialty Start Date End Date Norman Krishna [place] [address] [address] PCP - General Family Medicine 03/09/16 Bennett [place] [address] [place] [address] Gastroenterology 03/09/16
== END 2025-05-01 13:39 | disposition home or self-care (01) ==
PROVIDERS: PCP Family Medicine; Visit Provider Physician Assistant Medical
DX: M54.31 Sciatica, right side (principal); M54.50 Low back pain, unspecified
CPT/HCPCS: 72100